=== PATIENT | female | born 1970 | race Caucasian/White ===

== ENCOUNTER 2023-06-11 07:11 | Emergency (ER) | payer MEDICARE, SELFPAY ==
[2023-06-11] VITALS (9 sets, daily range): BP systolic 131–169; BP diastolic 82–92; PULSE 63–91; RESP 22; TEMP 37.3; O2SAT 99–100; BMI 31.1
--- NOTE | 2023-06-11 07:20 | DI.RAD.S_ITS ---
PROCEDURE: XR SHOULDER LT MIN 2V INDICATIONS: shoulder pain TECHNIQUE: Three views of the shoulder were acquired. COMPARISON: None. FINDINGS: Bones: No acute fractures or dislocations. No suspicious bony lesions. Visualized ribs appear intact. Degenerative changes are seen at the acromioclavicular joint. Soft tissues: No suspicious soft tissue calcifications. IMPRESSION: [id number] acromioclavicular joint osteoarthrosis. No acute osseous abnormality. If clinical suspicion and/or symptoms persist, additional imaging with repeat plain films, or advanced imaging (e.g. CT, MRI) may be helpful for further assessment. Approved by: David Min M.D. on 06/11/2023 at 7:54
--- NOTE | 2023-06-11 07:41 | ED_ITS ---
HPI - General Adult General Chief complaint: Extremity Injury, Upper Stated complaint: cant lift L arm/L arm pain Time Seen by Provider: 06/11/23 07:15 Source: patient Mode of arrival: Ambulatory History of Present Illness HPI narrative: 53yoF presents for L shoulder pain and 1 week of general malaise. Patient states that she has had ongoing issues with her shoulder, however last night she went to bed after sweeping her porch and woke up this morning barely able to move her L arm due to pain. No medications taken prior to arrival. Patient states that she has been under a lot of stress recently because she has newly moved to the area. She feels overall poorly and unwell, but denies fevers, shortness of breath, cough, abdominal pain, nausea, vomiting, other complaints. Related Data Previous Rx's Medication Instructions Recorded methocarbamol 500 mg tablet 500 mg PO TID #20 tabs 06/11/23 Allergies Allergy/AdvReac Type Severity Reaction Status Date / Time No Known Drug Allergies Allergy Verified 06/11/23 07:53 Review of Systems Review of Systems Narrative: CONSTITUTIONAL-reports: Malaise Denies: fever, chills HEENT- Denies: sore throat, nosebleed, vision changes RESPIRATORY- Denies: shortness of breath, cough, wheezing CARDIAC- Reports: palpitations Denies: chest pain, edema, orthopnea GI- Denies: abdominal pain, nausea, vomiting, constipation, diarrhea - Denies: frequency, dysuria, hematuria, flank pain MSK-reports: Joint pain Denies: extremity pain, extremity swelling, joint swelling SKIN- Denies: rash, itching, burn, swelling NEUROLOGICAL- Denies: headache, numbness, weakness, dizziness PSYCHIATRIC- Denies: anxiety, depression, suicidal ideation, homicidal ideation Patient History Social History Smoking Status: Never smoker Smoking Status: Never smoker Substance Use Type: does not use Exam Initial Vital Signs Initial Vital Signs: Vital Signs Pulse Rate 84 06/11/23 07:21 Pulse Oximetry 100 06/11/23 07:21 Const: Awake, alert, no acute distress, nontoxic appearing Eyes: PERRL, EOMI, conjunctiva normal ENT: Atraumatic, dentition normal, mucous membranes moist Cardiac: regular rate, regular rhythm RESP: unlabored, clear bilaterally, no wheezing GI: Atraumatic, soft, nontender, nondistended, no rebound, no guarding MSK: Atraumatic, ROM limited due to pain, tenderness over lateral and anterior deltoid muscles, 2+ radial pulses, heel nail rasper strength equal bilatearlly Skin: Warm, Dry, intact, no rashes Neuro: AO x3, CN II-XII grossly intact, moves all extremities Psych: affect normal, mood normal, not suicidal, not homicidal Course Course Course Narrative: Nontoxic-appearing female presenting for acute on chronic shoulder pain as well as a week of general malaise with occasional palpitations. Physical exam is unremarkable, patient does have limited range of motion of her arm due to pain, however there is no deformity, no traumatic injury to indicate need for imaging. Orders Ordered: ED Orders 06/11/23 07:20 XR shoulder LT min 2V Stat 06/11/23 07:30 Covid-19 + FLU A/B + RSV - PCR Stat 06/11/23 07:45 CBC Auto Diff [Complete Blood Count AUTO DIFF] Stat CMP [Comprehensive Metabolic Panel] Stat TSH [Thyroid Stimulating Hormone] Stat Trop I [Troponin I] Stat 06/11/23 07:54 UA Complete [Urinalysis and Microscopic] Stat Urine Culture Stat Discontinued Medications Sodium Chloride (Normal Saline 0.9%) 1,000 mls @ 1,000 mls/hr IV BOLUS ONE Stop: 06/11/23 08:19 Last Infusion: 06/11/23 09:12 Dose: 0 mls/hr Documented By: Admin: 06/11/23 07:55 Dose: 1,000 mls/hr Documented By: FLEX Ketorolac Tromethamine (Ketorolac 30 Mg/Ml Vial) 15 mg IV NOW ONE Stop: 06/11/23 07:21 Last Admin: 06/11/23 07:53 Dose: 15 mg Documented By: FLEX Lidocaine (Lidocaine Patch 1 Each Adh..Patch) 1 each TOP NOW ONE Stop: 06/11/23 07:21 Last Admin: 06/11/23 07:54 Dose: 1 each Documented By: FLEX Methocarbamol (Methocarbamol 500 Mg Tablet) 500 mg PO NOW ONE Stop: 06/11/23 07:21 Last Admin: 06/11/23 07:54 Dose: 500 mg Documented By: FLEX Reevaluation(s) Reevaluation #1: Laboratory work and imaging is unremarkable. No explanation for patient's symptoms. Patient placed in sling for comfort, will be discharged with muscle relaxers with instructions to follow rice supportive care measures at home. Patient was strongly counseled to follow up with Orthopedic surgery and to f ollow up with primary care physician. ED return precautions discussed at bedside. Patient expressed understanding of the plan and is in agreement at this time. All questions answered at the time of discharge. Vital Signs Vital signs: Vital Signs - 8 hr 06/11/23 07:30 06/11/23 07:30 06/11/23 07:39 Pulse Rate Blood Pressure 152/84 H 143/82 H Pulse Oximetry 99 06/11/23 07:39 06/11/23 07:55 06/11/23 07:55 Pulse Rate 90 85 Blood Pressure 149/89 H Pulse Oximetry 99 100 06/11/23 08:00 06/11/23 08:00 06/11/23 08:30 Pulse Rate 76 Blood Pressure 143/89 H 131/88 Pulse Oximetry 99 06/11/23 08:30 06/11/23 09:00 06/11/23 09:00 Pulse Rate 74 63 Blood Pressure 133/86 Pulse Oximetry 99 100 Medical Decision Making Lab Data 06/11/23 07:45 06/11/23 07:45 Labs: Lab Results 06/11/23 06/11/23 06/11/23 Range/Units 07:30 07:45 07:45 WBC 9.1 (4.5-11.0) X10^3/uL RBC 4.69 (4.0-5.2) X10^6/uL Hgb 13.4 (12.0-16.0) g/dL Hct 40.2 (36-46) % MCV 85.6 (80-100) fL MCH 28.6 (26-34) PG MCHC 33.4 (30-36) % RDW 13.0 (11.6-14.8) % Plt Count 249 (150-400) X10^3/uL Neut % (Auto) 61.2 (50-75) % Lymph % (Auto) 30.2 (25-40) % Ma[place]ick % (Auto) 6.1 (3-14) % Eos % (Auto) 1.9 L (2-4) % Baso % (Auto) 0.6 (0-2) % Neut # (Auto) 5600 (7768-2220) /uL Lymph # (Auto) 2700 (8687-6098) /uL Maverick # (Auto) 600 (0-900) /uL Eos # (Auto) 200 (0-450) /uL Baso # (Auto) 100 (0-100) /uL Sodium 137 (137-145) mmol/L Potassium 3.8 (3.4-5.1) mmol/L Chloride 104 (98-107) mmol/L Carbon Dioxide 23 (22-32) mmol/L BUN 23 H (7-17) mg/dL Creatinine 0.71 (0.52-1.04) mg/dL Estimated GFR > 60 (>60) mL/min BUN/Creatinine Ratio 32.4 H (6-22) Glucose 114 H (70-100) mg/dL Calcium 9.6 (8.4-10.2) mg/dL Total Bilirubin 0.4 (0.2-1.3) mg/dL AST 20 (14-36) IU/L ALT 21 (<35) IU/L Alkaline Phosphatase 92 (38-126) U/L Troponin I < 0.012 (0.01-0.034) ng/mL Total Protein 7.4 (6.3-8.2) g/dL Albumin 4.0 (3.5-5.0) g/dL Globulin 3.4 (1.7-4.1) g/dL Albumin/Globulin Ratio 1.2 (1.0-2.8) TSH (0.47-4.68) uIU/mL Urine Color Urine Appearance Urine pH (4.5-8.0) Ur Specific [place] (1.000-1.035) Urine Protein (Negative) Urine Glucose (UA) (Negative) g/dL Urine Ketones (NEGATIVE) Urine Occult Blood (Negative) Urine Nitrate (Negative) Urine Bilirubin (NEGATIVE) Urine Urobilinogen (0.2) E.U./dL Ur Leukocyte Esterase (NEGATIVE) Urine RBC (0-5/HPF) Urine WBC (0-5/HPF) Ur Squamous Epith Cells (0-5/HPF) Amorphous Sediment Urine Bacteria (None) Ur Culture Indicated? SARS-CoV-2 (PCR) Negative (Negative) Influenza A (RT-PCR) Flu a negative (NEGATIVE) Influenza B (RT-PCR) Flu b negative (NEGATIVE) RSV (PCR) Negative (Negative) 06/11/23 06/11/23 Range/Units 07:45 07:54 WBC (4.5-11.0) X10^3/uL RBC (4.0-5.2) X10^6/uL Hgb (12.0-16.0) g/dL Hct (36-46) % MCV (80-100) fL MCH (26-34) PG MCHC (30-36) % RDW (11.6-14.8) % Plt Count (150-400) X10^3/uL Neut % (Auto) (50-75) % Lymph % (Auto) (25-40) % Maverick % (Auto) (3-14) % Eos % (Auto) (2-4) % Baso % (Auto) (0-2) % Neut # (Auto) (4062-3479) /uL Lymph # (Auto) (5979-1760) /uL Ma[place]ick # (Auto) (0-900) /uL Eos # (Auto) (0-450) /uL Baso # (Auto) (0-100) /uL Sodium (137-145) mmol/L Potassium (3.4-5.1) mmol/L Chloride (98-107) mmol/L Carbon Dioxide (22-32) mmol/L BUN (7-17) mg/dL Creatinine (0.52-1.04) mg/dL Estimated GFR (>60) mL/min BUN/Creatinine Ratio (6-22) Glucose (70-100) mg/dL Calcium (8.4-10.2) mg/dL Total Bilirubin (0.2-1.3) mg/dL AST (14-36) IU/L ALT (<35) IU/L Alkaline Phosphatase (38-126) U/L Troponin I (0.01-0.034) ng/mL Total Protein (6.3-8.2) g/dL Albumin (3.5-5.0) g/dL Globulin (1.7-4.1) g/dL Albumin/Globulin Ratio (1.0-2.8) TSH 1.70 (0.47-4.68) uIU/mL Urine Color Yellow Urine Appearance Clear Urine pH 5.5 (4.5-8.0) Ur Specific [place] 1.025 (1.000-1.035) Urine Protein Negative (Negative) Urine Glucose (UA) Negative (Negative) g/dL Urine Ketones Negative (NEGATIVE) Urine Occult Blood Negative (Negative) Urine Nitrate Negative (Negative) Urine Bilirubin Negative (NEGATIVE) Urine Urobilinogen 0.2 (0.2) E.U./dL Ur Leukocyte Esterase Negative (NEGATIVE) Urine RBC None seen (0-5/HPF) Urine WBC 1-5/hpf (0-5/HPF) Ur Squamous Epith Cells 1-5 /hpf (0-5/HPF) Amorphous Sediment 1+ Urine Bacteria Occasional (0-1) (None) Ur Culture Indicated? Specimen cultured SARS-CoV-2 (PCR) (Negative) Influenza A (RT-PCR) (NEGATIVE) Influenza B (RT-PCR) (NEGATIVE) RSV (PCR) (Negative) Discharge Plan Departure Patient Disposition: Home Clinical Impression: Other sprain of left shoulder joint, initial encounter, Malaise Instructions: DI for Shoulder Sprain Activity Restrictions/Additional Instructions: YOU WERE SEEN TODAY FOR SHOULDER PAIN AND GENERAL FEELING OF UNWELL. YOUR X- RAYS ARE NORMAL AND YOUR LABS WERE NORMAL. I RECOMMEND TAKING TYLENOL, MOTRIN, AND PRESCRIBED MUSCLE RELAXERS FOR PAIN. I RECOMMEND THAT HE FOLLOW UP WITH YOUR PRIMARY CARE PHYSICIAN FOR GENERAL CHECKUP, AND YOU MAY FOLLOW WITH ORTHOPEDIC SURGERY FOR YOUR SHOULDER. YOU MAY EVENTUALLY NEED MRI, HOWEVER THIS WILL BE DONE ON A NONEMERGENT BASIS THROUGH THE ORTHOPEDIC SURGEON OR PRIMARY CARE DOCTOR Prescriptions: New methocarbamol 500 mg tablet 500 mg PO TID Qty: 20 0RF Referrals: Ranjan Barnes MD [Physician] - Stand Alone Forms: Patient Portal/API
[2023-06-11] MEDS: KETOROLAC 30 MG/ML VIAL 15 MG IV (07:53)
[2023-06-11] MEDS: methocarbamoL 500 MG TABLET PO (07:54)
[2023-06-11] MEDS: LIDOCAINE PATCH 1 EACH ADH..PATCH TOP (07:54)
[2023-06-11] MEDS: SODIUM CHLORIDE 0.9% 1,000 ML 1000 ML IV (07:55)
[2023-06-11 07:57] LABS: Add Manual Diff / Slide Review NO; Basophils Absolute Auto 100 /uL (0-100); Basophils Percent Auto 0.6 % (0-2); Eosinophils Absolute Auto 200 /uL (0-450); Eosinophils Percent Auto 1.9 % (2-4); Hematocrit 40.2 % (36-46); Hemoglobin 13.4 g/dL (12.0-16.0); Lymphocytes Absolute Auto 2700 /uL (1100-4500); Lymphocytes Percent Auto 30.2 % (25-40); Mean Corpuscular HGB Conc 33.4 % (30-36); Mean Corpuscular Hemoglobin 28.6 PG (26-34); Mean Corpuscular Volume 85.6 fL (80-100); Monocytes Absolute Auto 600 /uL (0-900); Monocytes Percent Auto 6.1 % (3-14); Neutrophils Absolute Auto 5600 /uL (1500-7000); Neutrophils Percent Auto 61.2 % (50-75); Platelet Count 249 X10^3/uL (150-400); Red Blood Cell Count 4.69 X10^6/uL (4.0-5.2)
[2023-06-11 07:58] LABS: White Blood Cell Count 9.1 X10^3/uL (4.5-11.0)
[2023-06-11 08:02] LABS: Appearance Urine UA CLEAR; Bilirubin Urine UA NEGATIVE (NEGATIVE); Color Urine UA YELLOW; Glucose Urine UA NEGATIVE (Negative); Ketones Urine UA NEGATIVE (NEGATIVE); Leukocyte Esterase Urine UA NEGATIVE (NEGATIVE); Nitrite Urine UA NEGATIVE (Negative); Occult Blood Urine UA NEGATIVE (Negative); Protein Urine UA NEGATIVE (Negative); Specific Gravity Urine UA 1.025 (1.000-1.035); Urobilinogen Urine UA 0.2 E.U./dL (0.2)
[2023-06-11 08:05] LABS: pH Urine UA 5.5 (4.5-8.0)
[2023-06-11 08:07] LABS: Alanine Aminotransferase 21 IU/L (<35); Albumin Globulin Ratio 1.2 (1.0-2.8); Alkaline Phosphatase 92 U/L (38-126); Aspartate Aminotransferase 20 IU/L (14-36); BUN Creatinine Ratio 32.4 (6-22); Bilirubin Total 0.4 mg/dL (0.2-1.3); Blood Urea Nitrogen 23 mg/dL (7-17); Calcium 9.6 mg/dL (8.4-10.2); Carbon Dioxide 23 mmol/L (22-32); Chloride 104 mmol/L (98-107); Estimated Glomerular Filt Rate > 60 mL/min (>60); Globulin 3.4 g/dL (1.7-4.1); Glucose 114 mg/dL (70-100); HEMOLYSIS < 15 (0-50); Potassium 3.8 mmol/L (3.4-5.1); Sodium 137 mmol/L (137-145); Total Protein 7.4 g/dL (6.3-8.2)
[2023-06-11 08:11] LABS: Amorphous Sediment Urine 1+; Bacteria Urine Occasional (0-1); Culture Indicated Urine Specimen Cultured; RBC Urine None Seen (0-5/HPF); Squamous Epithelial Cell Urine 1-5 /HPF (0-5/HPF); WBC Urine 1-5/HPF (0-5/HPF)
[2023-06-11 08:14] LABS: COVID-19 CEPHEID 4-PLEX PCR Negative (Negative); Influenza A - CEPHEID Flu A NEGATIVE (NEGATIVE); Influenza B - CEPHEID Flu B NEGATIVE (NEGATIVE); Respiratory Syncytial Virus Negative (Negative)
[2023-06-11 08:19] LABS: Troponin I < 0.012 ng/mL (0.01-0.034)
== END 2023-06-11 09:30 | disposition home or self-care (01) ==
PROVIDERS: Emergency Provider Emergency Medicine
DX: S43.492A Other sprain of left shoulder joint, initial encounter (principal); R53.81 Other malaise; Z20.822 Contact with and (suspected) exposure to COVID-19
CPT/HCPCS: 0241U; 36415; 73030; 80053; 81001; 84443; 84484; 85025; 87086; 96374; 99284; J1885